=== PATIENT | female | born 1980 | race Caucasian/White ===

== ENCOUNTER → 2019-05-24 15:34 | Outpatient (CLI) | payer OTHER, SELFPAY ==
--- NOTE | 2019-05-24 15:35 | US_ITS ---
PROCEDURE: US TRANSVAGINAL CLINICAL INDICATION: pelvic pain Pelvic pain COMPARISON: No exams were available for comparison FINDINGS: Prior hysterectomy. Left ovary is 2.6 x 1.8 cm contains a few small follicles. Right ovary is 2.8 x 2.2 cm also containing small follicles. No dominant cyst evident. Bilateral ovarian blood flow noted. No free fluid in the cul-de-sac IMPRESSION: Prior hysterectomy otherwise negative pelvic ultrasound Dictated by: Wilfredo Francis MD 05/24/2019 19:29 Signed by: <Electronically signed by Wilfredo Francis MD in [place]> 05/24/2019 19:29
== END ==
PROVIDERS: PCP Pediatrics; Visit Provider Obstetrics & Gynecology
DX: R10.2 Pelvic and perineal pain (principal)
CPT/HCPCS: 76830

== ENCOUNTER → 2019-06-10 10:24 | Outpatient (CLI) | payer OTHER, SELFPAY ==
[2019-06-10 10:26] LABS: Microscopic, Urine URINE MICROSCOPIC (MICROSCOPIC)
[2019-06-10 10:38] LABS: Appearance,Urine CLEAR (Clear); Bilirubin,Urine Negative (Negative); Blood, Urine Negative (Negative); Color,Urine YELLOW (Yellow); Glucose,Urine (UA) Negative (Negative); Ketones,Urine Negative (Negative); Leukocyte Esterase,Urine Negative (Negative); Nitrate,Urine Negative (Negative); PH,Urine 6.5 (5.0-8.5); Protein,Urine Negative (Negative); Specific Gravity, Urine 1.025 (1.005-1.030); Urobilinogen,Urine 0.2 EU/dl (0.2)
[2019-06-10 10:39] LABS: Basophils % 0.4 % (0.1-2.0); Eosinophils # 0.4 K/mm3 (0.0-0.4); Eosinophils % 3.2 % (0.1-12.0); Hematocrit 43.3 % (37.0-47.0); Hemoglobin 14.1 g/dL (12.2-16.2); Lymphocytes # 2.6 K/mm3 (0.7-4.5); Lymphocytes % 21.4 % (10-50); Mean Corpuscular HGB Conc 32.7 g/dL (31.8-35.4); Mean Corpuscular Hemoglobin 31.3 pg (27.0-31.2); Mean Corpuscular Volume 95.9 fl (81-99); Mean Platelet Volume 7.6 fl (7.4-10.4); Monocytes # 0.6 K/mm3 (0.1-1.0); Monocytes % 5.1 % (1.7-9.3); Neutrophils # 8.4 K/mm3 (1.8-7.8); Neutrophils % 69.9 % (37.0-80.0); Platelet Count 268 K/mm3 (142-424); Red Blood Count 4.52 M/mm3 (4.20-5.40); Red Cell Distribution Width 13.5 % (11.5-17.5)
[2019-06-10 11:22] LABS: Bacteria,Urine 2+ /lpf
[2019-06-10 11:59] LABS: Alanine Aminotransferase 26 U/L (12-78); Albumin Level 3.8 gm/dL (3.4-5.0); Albumin/Globulin Ratio 1.1 (1.1-1.8); Alkaline Phosphatase 93 U/L (46-116); Anion Gap 13.4 mEq/L (5-15); Aspartate Amino Transferase 13 U/L (15-37); Bilirubin,Total 0.3 mg/dL (0.2-1.0); Blood Urea Nitrogen 10 mg/dL (7-18); Calcium 9.1 mg/dL (8.5-10.1); Carbon Dioxide 28 mmol/L (21.0-32.0); Chloride 104 mmol/L (98-107); Creatinine,Serum 0.85 mg/dL (0.55-1.02); Estimated Glomerular Filt Rate 75 ml/min (>60); GFR (African American) 91 ML/MIN (>60); Globulin 3.4 gm/dl (1.3-3.2); Glucose 77 mg/dL (74-106); Potassium 4.4 mmoL/L (3.5-5.1); Sodium 141 mmol/L (136-145); Total Protein,Serum 7.2 gm/dL (6.4-8.2)
== END ==
PROVIDERS: Visit Provider Obstetrics & Gynecology
DX: Z01.818 Encounter for other preprocedural examination (principal); R10.2 Pelvic and perineal pain
CPT/HCPCS: 36415; 80053; 81001; 85025; 87086